=== PATIENT | male | born 1935 | race Caucasian/White ===

== ENCOUNTER → 2020-11-25 | Outpatient (CLI) | payer MEDICARE, OTHER ==
[~2020-11-25] MED LIST: AMLO10TA PO; ASPI-624 PO; FINA1TAB10 PO; MULT-850 PO; OMEG-9 PO; OMEP20TA2 PO; ROSU10TA12 PO; VALS1TAB78 PO
== END ==
LOC: CARD 10:02
PROVIDERS: ATTEND Internal Medicine Cardiovascular Disease
DX: I10 Essential (primary) hypertension (principal); R07.9 Chest pain, unspecified
CPT/HCPCS: 93306

== ENCOUNTER → 2020-12-04 | Outpatient (CLI) | payer MEDICARE, OTHER ==
[~2020-12-04] VITALS: Ht 172 cm; Wt 74.0 kg
[~2020-12-04] MED LIST changes: +CATHETER FLUSH 10 ML SYR IV PRN; +REGADENOSON 0.4 MG/5 ML SYR (LEXISCAN) IV ONE
[2020-12-04 09:20] VITALS: BP 159/83
--- NOTE | 2020-12-04 15:30 | Cardiology Stress Test Report ---
Stress Test Report Date of Procedure/Referring: Date of Procedure: Dec 04, 2020 PCP Gunjan Barker MD Admitting Physician Kelli Jensen MD Indications: HTN Baseline Heart Rate: 58 Baseline Blood Pressure: Blood Pressure Systolic: 159 Blood Pressure Diastolic: 83 Vital Signs Date Time Temp Pulse Resp B/P (MAP) Pulse Ox O2 Delivery O2 Flow Rate FiO2 12/04/20 09:20 64 18 159/83 (108) 99 Room Air Baseline Vital Signs Vital Signs Date Time Temp Pulse Resp B/P (MAP) Pulse Ox O2 Delivery O2 Flow Rate FiO2 12/04/20 09:20 64 18 159/83 (108) 99 Room Air Baseline EKG: Baseline EKG: NSR Summary: After explaining the procedure and details to the patient, he signed the consent and was brought to the stress nuclear laboratory. Patient exercised on standard Percy protocol, EKG, heart rate and blood pressure were monitored continuously, resting and stress doses of radio tracer were injected, imaging was acquired and reviewed in the short axis, horizontal long axis and vertical long axis views Patient was able to exercise for a total of 7:15 minutes on Percy protocol, METs 8.7 Maximum heart rate 118 Maximum blood pressure 189/65 Stress EKG, [address] depression in leads 2, 3, aVF, V4, V3. Multiple PVCs noted during exercise Recovery EKG, Return to baseline TID: 1.06 SSS: 4 SDS: 0 EF: 65 Conclusion: 1. Fair exercise tolerance a total of 7 minutes 15 seconds on standard Percy protocol, total of 8.7 METs achieving 86 percent of maximum expected heart rate 2. Hypertensive response to exercise returned to baseline during recovery 3. Frequent PVCs noted during exercise, nondiagnostic EKG changes with [address] depression in leads 2, 3 and aVF return to baseline during recovery 4. Diaphragmatic attenuation with decreased uptake involving the mid to apical ant. Wall with no significant reversibility, mild reversed redistribution was noted. No significant ischemia or infarction on SPECT images 5. Normal left ventricular size, EF 65 percent GUNJAN BARKER MD Dec 04, 2020 15:30
== END ==
LOC: CARD 08:15
PROVIDERS: ATTEND Internal Medicine Cardiovascular Disease
DX: R07.9 Chest pain, unspecified (principal); I10 Essential (primary) hypertension
CPT/HCPCS: 78452; 93017; A9502

== ENCOUNTER → 2023-07-14 | Outpatient (CLI) | payer MEDICARE, OTHER ==
[~2023-07-14] MED LIST changes: -CATHETER FLUSH 10 ML SYR IV PRN; -REGADENOSON 0.4 MG/5 ML SYR (LEXISCAN) IV ONE
== END ==
LOC: CARD 12:58
PROVIDERS: ATTEND Physician Assistant
DX: I11.9 Hypertensive heart disease without heart failure (principal); I34.0 Nonrheumatic mitral (valve) insufficiency; I34.81 Nonrheumatic mitral (valve) annulus calcification
CPT/HCPCS: 93306